=== PATIENT | male | born 1980 | race Caucasian/White ===

== ENCOUNTER 2020-12-25 03:15 | Emergency (ER) | payer OTHER ==
[~2020-12-25 03:15] MED LIST: BACTRIM DS TAB1 EACH PO; KEFLEX CAP 500500 MG PO; LODINE CAP 300300 MG PO
[2020-12-25 03:39] LABS: HEMOGLOBIN 14.9 gm/dl (14.0-17.5); RED BLOOD COUNT 4.74 M/UL (4.20-5.50)
[2020-12-25 04:12] LABS: BUN/CREATININE RATIO 12 (0-10)
[2020-12-25] MEDS ORDERED: ASPIRIN CHEWABL81 MG PO (08:42)
[2020-12-25] MEDS ORDERED: NITROSTAT0.4 MG SL (08:42)
== END 2020-12-25 08:50 | disposition home or self-care (01) ==
LOC: ER1 03:15
PROVIDERS: Family Medicine
DX: R07.9 Chest pain, unspecified (principal); R00.0 Tachycardia, unspecified; E11.9 Type 2 diabetes mellitus without complications; I10 Essential (primary) hypertension
CPT/HCPCS: 71045; 80053; 82550; 82553; 83874; 84484; 85025; 85379; 85610; 85730; 93005; 99285

== ENCOUNTER 2021-09-28 01:52 | Emergency (ER) | payer OTHER ==
[~2021-09-28 01:52] MED LIST changes: +ASPIRIN CHEWABL81 MG PO; +NITROSTAT0.4 MG SL
[2021-09-28 02:40] LABS: HEMOGLOBIN 15.1 gm/dl (14.0-17.5); RED BLOOD COUNT 5.03 M/UL (4.20-5.50); WHITE BLOOD COUNT 17.2 K/UL (4.5-11.0)
[2021-09-28 02:57] LABS: BUN/CREATININE RATIO 12 (0-10)
[2021-09-28] MEDS ORDERED: CEPHALEXIN500 MG PO (07:45)
== END 2021-09-28 07:57 | disposition home or self-care (01) ==
LOC: ER1 01:52
PROVIDERS: Student in an Organized Health Care Education/Training Program
DX: S01.412A Laceration without foreign body of left cheek and temporomandibular area, initial encounter (principal); S50.312A Abrasion of left elbow, initial encounter; Z23 Encounter for immunization; E10.9 Type 1 diabetes mellitus without complications; Y04.0XXA Assault by unarmed brawl or fight, initial encounter; Y92.009 Unspecified place in unspecified non-institutional (private) residence as the place of occurrence of the external cause
CPT/HCPCS: 70450; 70486; 71046; 72170; 73080; 80048; 80307; 81001; 83605; 85025; 90471; 90715; 99284